=== PATIENT | male | born 1955 | race Caucasian/White ===

== ENCOUNTER → 2018-02-16 14:47 | Outpatient (CLI) | payer OTHER, SELFPAY ==
--- NOTE | 2018-02-16 14:56 | RAD_ITS ---
STUDY: X-RAY CHEST REASON FOR EXAM: Male, 62 years old. Right sided posterior and axillary rib pain. TECHNIQUE: PA and lateral views of the chest. COMPARISON: None. FINDINGS: Lungs well expanded. Small nodular density in the lateral right lung base thought to represent a calcified granuloma. No mass or infiltrate There is no demonstrated pleural abnormality. Normal size heart. Normal mediastinum and maria isabel. Normal visualized pulmonary arteries. Normal visualized aortic arch and descending thoracic aorta. Normal visualized thoracic spine. Normal visualized ribs, clavicles, and shoulders. There is no demonstrated abnormality of the visualized soft tissue structures of the upper abdomen. RAD/Chest PA and Lateral IMPRESSION: No acute cardiopulmonary disease. Electronically Signed: Saul De DO at 16:05 EDT Tel [phone], Service support ,
== END ==
PROVIDERS: Family Provider Family Medicine Geriatric Medicine; PCP Family Medicine Geriatric Medicine; Visit Provider Family Medicine Geriatric Medicine
DX: M54.5 Low back pain (principal)
CPT/HCPCS: 71046

== ENCOUNTER → 2018-03-20 09:27 | Outpatient (CLI) | payer OTHER, SELFPAY ==
--- NOTE | 2018-03-20 09:35 | MRI_ITS ---
STUDY: MRI THORACIC SPINE WITHOUT CONTRAST REASON FOR EXAM: Male, 62 years old. Right mid lateral rib pain and burning x1 year. Rib tightness. TECHNIQUE: Standardized fat and water weighted pulse sequences were obtained in the sagittal and axial planes. COMPARISON: None. FINDINGS: Normal kyphosis of the thoracic spine. There is no substantial scoliosis. T6-T7: Normal endplates. Minimal disc space height narrowing with moderate loss of disc hydration. Normal central canal and bilateral intervertebral neural foramina. T7-T8: Normal endplates. Moderate disc space height narrowing with moderate loss of disc hydration. Normal central canal and bilateral intervertebral neural foramina. T1-2, T2-3, T3-4, T4-5, T5-6, T8-9, T9-10, T10-11, T11-12: Normal endplates. Normal disc hydration, heights and morphology of the corresponding intervertebral discs. Normal central canal and intervertebral neural foramina at the corresponding levels. Normal visualized thoracic cord. Normal conus medullaris that terminates at the upper L1 vertebral body level. The soft tissue structures are unremarkable. MRI/Spine Thoracic (Routine) IMPRESSION: 1. Degenerative disc space height narrowing with moderate loss of disc hydration at the T6-T7 and T7-T8 disc space levels. 2. No MRI evidence of thoracic extruded disc fragment or spinal stenosis. 3. Normal MRI of the thoracic spinal cord. 4. No MRI evidence of acute, subacute or old compression fractures of the thoracic spine. Electronically Signed: Eligio Chatman MD at 10:49 EDT , Service support ,
== END ==
PROVIDERS: Family Provider Family Medicine Geriatric Medicine; PCP Family Medicine Geriatric Medicine; Visit Provider Family Medicine Geriatric Medicine
DX: R07.81 Pleurodynia (principal); M54.5 Low back pain
CPT/HCPCS: 72146

== ENCOUNTER → 2018-06-04 14:56 | Outpatient (CLI) | payer OTHER, SELFPAY ==
[2018-06-06 09:01] LABS: PSA, Free 0.62 ng/mL; PSA, Free % 16.3 % (.); PSA, Total Ultrasensitive 3.8 ng/mL (0.0-4.0)
== END ==
PROVIDERS: Family Provider Family Medicine Geriatric Medicine; PCP Family Medicine Geriatric Medicine; Visit Provider Nurse Practitioner Adult Health
DX: R97.20 Elevated prostate specific antigen [PSA] (principal)
CPT/HCPCS: 36415; 84153; 84154

== ENCOUNTER → 2018-12-03 09:18 | Outpatient (CLI) | payer OTHER, SELFPAY ==
[2018-12-03 10:06] LABS: PSA,Total- Diagnostic 5.28 ng/mL (0.0-4.0)
== END ==
PROVIDERS: Family Provider Family Medicine Geriatric Medicine; PCP Family Medicine Geriatric Medicine; Referring Provider Nurse Practitioner Adult Health; Visit Provider Nurse Practitioner Adult Health
DX: R97.20 Elevated prostate specific antigen [PSA] (principal)
CPT/HCPCS: 36415; 84153

== ENCOUNTER → 2019-03-16 | Outpatient (CLI) | payer OTHER, SELFPAY ==
[2019-03-18 08:53] LABS: PSA, Free 1.31 ng/mL; PSA, Free % 21.5 % (.); PSA, Total Ultrasensitive 6.1 ng/mL (0.0-4.0)
== END | disposition home or self-care (01) ==
PROVIDERS: Family Provider Family Medicine Geriatric Medicine; PCP Family Medicine Geriatric Medicine; Referring Provider Nurse Practitioner Adult Health; Visit Provider Nurse Practitioner Adult Health
DX: R97.20 Elevated prostate specific antigen [PSA] (principal)
CPT/HCPCS: 36415; 84153; 84154

== ENCOUNTER → 2019-09-09 13:29 | Outpatient (CLI) | payer OTHER, SELFPAY ==
[2019-09-09 15:38] LABS: PSA,Total- Diagnostic 4.61 ng/mL (0.0-4.0)
== END ==
PROVIDERS: Family Provider Family Medicine Geriatric Medicine; PCP Family Medicine Geriatric Medicine; Referring Provider Nurse Practitioner Adult Health
DX: R97.20 Elevated prostate specific antigen [PSA] (principal)
CPT/HCPCS: 36415; 84153

== ENCOUNTER → 2019-12-21 13:14 | Outpatient (CLI) | payer OTHER, SELFPAY ==
--- NOTE | 2019-12-21 13:34 | RAD_ITS ---
STUDY: X-RAY CHEST REASON FOR EXAM: Male, 64 years old. melanoma tumor on back, no chest complaints TECHNIQUE: PA and lateral views of the chest. COMPARISON: Comparison is made with prior examination dated February 16, 2018. FINDINGS: Since prior examination, there is been a mild degree of the increased blunting of the right costophrenic angle. Stable increased markings at the right lung base. Stable calcified granuloma in the right lower lobe. Normal size heart. Normal mediastinum and maria isabel. Normal visualized pulmonary arteries. Normal visualized aortic arch and descending thoracic aorta. There are diffuse degenerative changes of the visualized thoracic spine. Normal visualized ribs, clavicles, and shoulders. There is no demonstrated abnormality of the visualized soft tissue structures of the upper abdomen. RAD/Chest PA and Lateral IMPRESSION: Since prior study, there is very mild degree of progressive blunting of the right costophrenic angle. The remainder of the examination is unchanged. Electronically Signed: Selvin Carlton, at 13:53 EDT , Service support ,
[2019-12-21 14:18] LABS: Absolute Lymphocyte Count 1.15 X10^3/uL (0.83-4.51); Absolute Neutrophil Count 6.4 X10^3/uL (2.0-7.7); Basophil# 0.05 X10^3/uL; Basophil% 0.6 % (0-1); Eosinophils% 1.2 % (0-5); Hematocrit 47.1 % (40-54); Hemoglobin 15.9 g/dL (13.0-16.5); Lymphocyte # 1.15 X10^3/ul (4.0); Lymphocyte % 13.9 % (19-41); Mean Corp Hgb Conc 33.8 g/dL (32-36); Mean Corpuscular Volume 88.9 fL (80-94); Mean Platelet Vol. 9.4 fl (6.2-12.0); Monocyte# 0.59 X10^3/uL; Monocyte% 7.1 % (0-10); NRBC Flagged by Analyzer 0 % (0-5); Neutrophil # 6.35 X10^3/uL (2.7-7.7); Neutrophil % 76.8 % (47-70); Platelet Count 162 K/mm3 (150-450); RBC Distribution Width CV 13.2 % (11.6-14.6); RBC Distribution Width SD 42.9 fl (35.1-43.9); White Blood Count 8.3 K/mm3 (4.4-11.0)
[2019-12-21 14:42] LABS: ALB/GLOB Ratio 1.1 RATIO (0.9-2.4); AST(SGOT) 30 U/L (15-37); Alanine Aminotransfer ALT/SGPT 62 U/L (16-61); Alkaline Phosphatase 74 U/L (45-117); Anion Gap 5 (5-15); BUN 24 mg/dL (7-18); BUN/Creat Ratio 24.6 RATIO (10-20); Bilirubin, Direct 0.18 mg/dL (0.00-0.30); Calcium,Total 9.1 mg/dL (8.5-10.1); Chloride 102 mmol/L (98-107); Creatinine, Serum 0.98 mg/dL (0.70-1.30); EST Glomerular Filtration Rate 83 mL/min (>60); Est Glom Filt Rate - Afr Amer 100 mL/min (>60); Globulin 3.5 g/dL (2.2-4.2); Glucose 102 mg/dL (74-106); LDH 153 U/L (87-241); Potassium 4.2 mmol/L (3.5-5.1); Protein, Total 7.5 g/dL (6.4-8.2); Sodium Level 139 mmol/L (136-145)
== END ==
PROVIDERS: PCP Family Medicine Geriatric Medicine; Referring Provider Orthopaedic Surgery Hand Surgery; Visit Provider Orthopaedic Surgery Hand Surgery
DX: C43.59 Malignant melanoma of other part of trunk (principal)
CPT/HCPCS: 36415; 71046; 80053; 82248; 83615; 85025

== ENCOUNTER → 2020-04-03 14:02 | Outpatient (CLI) | payer OTHER, SELFPAY ==
[2020-04-03 15:26] LABS: PSA,Total- Diagnostic 4.67 ng/mL (0.0-4.0)
== END ==
PROVIDERS: PCP Family Medicine Geriatric Medicine; Visit Provider Nurse Practitioner Adult Health
DX: R97.20 Elevated prostate specific antigen [PSA] (principal)
CPT/HCPCS: 36415; 84153

== ENCOUNTER 2021-12-02 09:55 | Emergency (ER) | payer OTHER, SELFPAY ==
[2021-12-02 09:56] VITALS: BP 175/85; PULSE 80; RESP 18; TEMP 36.6; O2SAT 100; BMI 25.8
--- NOTE | 2021-12-02 10:12 | EX.ED.GUMALE ---
HPI History of Present Illness Chief Complaint: Complaint Detail of Chief Complaint: Urinary retention Informant: patient Pain Onset: Today Context: Gradual Onset Timing: Continuous Worsened by: Nothing Relieved by: Laying down Urinary Symptoms Genitourinary Symptoms: Retention and Dysuria Narrative Narrative: Patient presents with urinary retention that began today. Patient states he was last able to urinate at approximately 0130 today. Patient states he feels like there is pressure in his suprapubic area. Patient states he was able to urinate a few drops this morning and there was some discomfort with that. Patient denies any hematuria. Patient states he had a recent upper respiratory infection and took an antihistamine to help with the rhinorrhea. Patient denies any fevers or chills. Patient denies any nausea or vomiting. PFSH PFSH Medical History no medical history no medical history Allergy/AdvReac Type Severity Reaction Status Date / Time No Known Allergies Allergy Verified 12/02/21 09:57 Surgical History History of melanoma excision Hx of knee surgery Hx of lymph node excision Social History Smoking Status: Never smoker ROS ROS ED Constitutional Constitutional ED: Denies chills or fever(s) Eyes Eyes: Denies blurry vision or change in vision ENT ENT ED: Reports rhinorrhea; Denies sore throat Cardiovascular Cardiovascular: Denies chest pain or palpitations Respiratory/Chest Respiratory/Chest: Denies cough or dyspnea Gastrointestinal Gastrointestinal: Denies nausea or vomiting Genitourinary Genitourinary ED: Reports dysuria; Denies hematuria Musculoskeletal Musculoskeletal: Denies back pain or neck pain Integumentary Denies abscess or rash Neurologic Neurologic: Denies headache(s) or weakness Allergic/Immunologic Allergic/Immunologic ED: Denies mouth swelling or urticaria EXAM Physical Exam Const Vital Signs: 12/02/21 09:56 12/02/21 10:53 Temperature 97.9 F 97.9 F Temperature Source Temporal Temporal Pulse Rate 80 80 Respiratory Rate 18 18 Blood Pressure 175/85 H 175/85 H Blood Pressure Mean 115 115 Pulse Ox 100 100 Oxygen Delivery Method Room Air Room Air Positive well nourished and well developed General Appearance ED: well developed HEENT Reports moist mucous membranes Neck supple and no JVD Resp normal respiratory effort and clear to auscultation bilaterally Cardio regular rate, regular rhythm and no murmurs GI normal to inspection, nondistended, normoactive bowel sounds Auscultation: normoactive bowel sounds Palpation: soft and tender suprapubic (Pressure); Negative for guarding Extremity normal to inspection General Extremety ED: Negative for edema or tenderness General Extremity: Negative for edema Neuro oriented x3, CN's II-XII intact bilaterally and no sensory deficits noted Sensorium / Orientation: alert Motor Exam: strength 5/5 throughout Psych mental status grossly normal Skin no rashes or lesions noted MDM MDM MDM Narrative Medical decision making narrative: Kwon catheter was placed. There is over 500 cc of urine returned. Urinalysis does not show any evidence of urinary tract infection. Patient feels better on reevaluation. Patient was given a leg bag. Patient was instructed to follow-up with his primary care physician in 1 to 2 days for Kwon catheter removal. Patient was instructed to return if worse in any way. Patient understood and was agreeable with the plan. All questions were answered. Lab Data Attestation: I reviewed the patient's lab results. Labs: Laboratory Results - last 24 hr 12/02/21 10:50 Urine Color Yellow Urine Clarity Clear Urine pH 7.0 Ur Specific [place] 1.010 Urine Protein 15 H Urine Glucose (UA) Normal Urine Ketones Negative Urine Occult Blood 25 H Urine Nitrite Negative Urine Bilirubin Negative Urine Urobilinogen Normal Ur Leukocyte Esterase Negative Urine RBC 0-5 SEEN Urine WBC 0 SEEN Ur Squamous Epith Cells 0 SEEN Urine Bacteria RARE Urine Mucus 0 SEEN Discharge Plan Triage Chief Complaint: Complaint ED Provider: Dhiraj Webster Dx/Rx/DC Orders Clinical Impression: Acute urinary retention Instructions: ED Kwon Catheter, Care, ED Urinary Retention, Male Primary Care Provider: Papi Wilcox Referrals: Papi Wilcox MD [Primary Care Provider] - 2 Days Disposition Disposition: Home, Self Care
[2021-12-02 10:53] VITALS: BP 175/85; PULSE 80; RESP 18; TEMP 36.6; O2SAT 100
[2021-12-02] MEDS: Lidocaine Jelly 2% 20 ML Syringe (URO-JET) 1 APPLIC TOPICAL (10:56)
[2021-12-02 11:04] LABS: Mucous, Urine 0 SEEN /hpf (<or=2+); Squamous Epithelial Cells - UA 0 SEEN /hpf (0-5); White Blood Cells 0 SEEN /hpf (0-5)
[2021-12-02 11:05] LABS: Color, Urine Yellow (Yellow); Glucose, Dipstick Normal (Normal); Ketone-Dipstick Negative (Negative); Leukocyte Esterase-Dipstick Negative /ul (Negative); Nitrite-Dipstick Negative (Negative); Occult Blood-Urine 25 /ul (Negative); Protein-Dipstick 15 mg/dl (Negative); Urine Bilirubin Dipstick Negative (Negative); Urine Clarity Clear (Clear); Urine Urobilinogen Normal (Normal)
[2021-12-02 11:19] LABS: Bacteria RARE /hpf (None Seen); Red Blood Cells-Urine 0-5 SEEN /hpf (0-5)
== END 2021-12-02 13:05 | disposition home or self-care (01) ==
PROVIDERS: Emergency Provider Emergency Medicine; PCP Family Medicine Geriatric Medicine; Visit Provider Emergency Medicine
DX: R33.9 Retention of urine, unspecified (principal)
CPT/HCPCS: 51702; 81001; 99283

== ENCOUNTER → 2022-01-24 | Outpatient (CLI) | payer OTHER, SELFPAY | END | disposition home or self-care (01) | LOC: LABSPEC 16:48 | PROVIDERS: PCP Family Medicine Geriatric Medicine; Referring Provider Urology; Visit Provider Urology | DX: R31.9 Hematuria, unspecified (principal) | CPT/HCPCS: 87077; 87086; 87088; 87186 ==

== ENCOUNTER 2022-02-06 11:46 | Observation (INO) | payer OTHER, SELFPAY ==
[2022-02-06] VITALS (12 sets, daily range): BP systolic 104–130; BP diastolic 57–76; PULSE 51–65; RESP 16–18; TEMP 35.8–37.1; O2SAT 95–100; BMI 26.9
--- NOTE | 2022-02-06 | PROS_PTH ---
PATIENT: NAS CANSECO LOC: [facility]3 U#:[id number] AGE/SX: 66/M ROOM: NH314 RE02/06/[address]: Dr. Kieran Meyer MD : [id number] BED: 1 DIS: 02/07/2022 SPEC #: [id number] RECD: 02/06/22 14:18 STATUS: SARAH BLACK #: [id number] EZEQUIEL: 02/06/22 00:[address]: Kieran Meyer DEPT: SURGICAL PATHOLOGY RECD BY: Anival Pablo ENTERED: 02/07/22 08:50 SP TYPE: TURP OTHR DR: Dr. Ppai Wilcox MD Tissues: Prostate, NOS Procedures: Surgery Specimen Level IV HEADER OPERATION: Cysto, TUR prostate, [facility] PRE-OP DIAGNOSIS: BPH with urge incontinence TISSUE SUBMITTED: Prostate chips MICROSCOPIC DIAGNOSIS Prostate, transurethral resection: Benign nodular hyperplasia. Mild chronic inflammation. Urothelium with mild chronic inflammation. AM:paul 02/08/2022 MICROSCOPIC DESCRIPTION Slides are reviewed. GROSS DESCRIPTION Received is one container labeled with the patient's name and designated prostate chips. The specimen consists of multiple irregular fragments of pink-morrison, rubbery, soft tissue that in aggregate weigh 9.1 gm and measure in aggregate 5 x 5 x 1.5 cm. The entire specimen is submitted in ten cassettes. / SJ:paul 02/07/2022 TC:3 CPT: 83199
--- NOTE | 2022-02-06 09:34 | EKG12_ITS ---
Test Reason : PRE OP Blood Pressure : / mmHG Vent. Rate : 063 BPM Atrial Rate : 063 BPM P-R Int : 152 ms QRS Dur : 098 ms QT Int : 418 ms P-R-T Axes : 031 001 025 degrees QTc Int : 427 ms Normal sinus rhythm Normal ECG Confirmed by ALTAGRACIA MCKAY, MARLENA ([id number]), editor newspaper COLIN JUNE ([id number]) on 02/11/2022 1:30:45 PM Referred By: ABRAM Confirmed By:MARLENA FRIAS MD
[2022-02-06] MEDS: Lactated Ringers 1,000 ML 15 ML IV (10:10)
[2022-02-06] MEDS: Cefazolin 2 GM in 0.9% Normal Saline 100 ML IV (10:52)
--- NOTE | 2022-02-06 11:47 | PCM.HP.STD ---
HPI - General HPI Narrative NAS CANSECO, is a 66 M who presents for transurethral resection of the prostate for obstructive prostate and symptoms PFSH Medical History (Updated 01/30/22 @ 12:55 by Codie Fam) Back pain Cancer Non-smoker Prostate disease Wears glasses Home Medications ciprofloxacin HCl [Cipro] 500 mg PO BID 01/30/22 [History Last Taken 02/05/22 21:00] ciprofloxacin HCl [Cipro] 500 mg PO BID #10 tab 02/06/22 [Rx Last Taken Unknown] Allergy/AdvReac Type Severity Reaction Status Date / Time No Known Allergies Allergy Verified 02/06/22 09:53 Surgical History (Updated 01/30/22 @ 12:55 by Codie Fam) History of melanoma excision History of surgery on wrist Hx of colonoscopy Hx of fusion of cervical spine Hx of knee surgery Hx of lymph node excision Social History Smoking Status: Never smoker Vital Signs Vital Signs Vital Signs: 02/06/22 09:57 02/06/22 10:00 Temperature 98.7 F Temperature Source Temporal Pulse Rate 65 Respiratory Rate 18 Respiratory Pattern Normal Blood Pressure 116/63 Blood Pressure Mean 80 Blood Pressure Source Monitor Blood Pressure Position Semi-Fowlers Blood Pressure Location Right Arm Pulse Ox 99 Oxygen Delivery Method Room Air Weight Weight: 85.185 kg Body Mass Index (BMI) 26.9
--- NOTE | 2022-02-06 11:47 | PCM.DC ---
Discharge Instructions Diet Discharge Diet: No restrictions Activity Discharge Activity: Return to Normal Activity and May Not Drive (while taking narcotic pain medications.) Dressing / Incision Call your doctor if you observe: Fever of 101 or Higher Follow Up Care Please Follow Up With: Kieran Meyer MD When: Call [phone] for an appointment Test Results: Test results from this visit will be discussed in further detail at your follow-up appointment, if applicable. Discharge Plan Admission Primary Reason for Your Visit: turp Attending Provider: Kieran Meyer Primary Care Provider: Papi Wilcox Instructions Patient Instructions: TUR Home Recovery Discharge Orders/Prescriptions Prescriptions: New ciprofloxacin HCl [Cipro] 500 mg tablet 500 mg PO BID Qty: 10 RF: 0 Discontinued tamsulosin [Flomax] 0.4 mg Capsule 0.8 mg PO QHS RF: 0 No Action ciprofloxacin HCl [Cipro] 500 mg Tablet 500 mg PO BID RF: 0 Referrals / Follow Up: Kieran Meyer MD [STAFF PHYSICIAN] - Papi Wilcox MD [Primary Care Provider] - Disposition Disposition (needs filled in before D/C Order can be placed): Home, Self Care
--- NOTE | 2022-02-06 11:48 | OP.PCM_ITS ---
Report of Operation Date of Procedure: 02/06/22 Pre-Operative Diagnosis: bph with obstruction and recurrent UTIs Post-Operative Diagnosis: same Surgery/Procedure Performed:: Transurethral resection of the prostate Description of Surgical Findings:: In the preoperative setting I discussed with the patient how the surgery would be done with expect afterwards. We discussed how a prostate resection is done and we discussed the risk of the surgery including, bleeding, infection, retrograde ejaculation, changes with ejaculation or intercourse,. We discussed the possibility that the resection of the prostate may not alleviate his urinary symptoms. We discussed the small risk of developing scar tissue along the urethral channel and strictures. We also discussed the chance of the prostate could grow back and he may need further zacarias rgery or treatment in the future for prostate problems. Patient was taken back to the operating room, timeout procedure was performed, he was identified and marked and placed on the operating room table. He underwent general anesthesia. He was placed in dorsolithotomy position. Penis and testicles were prepped and draped in usual sterile fashion. Went into the bladder using the visual obturator with a resectoscope. Once inside the bladder identified the right and left ureteral orifice. I then identified the prostate and the anatomy of the prostate. I marked out the area of the sphincter and the verumontanum was identified. I then proceeded with the prostate resection first resected the median lobe. And then resected the right lobe of the prostate. Then to resect the left lobe of the prostate. I then resected the apical tissue of the prostate. This was a complete resection of all obstructive tissue to improve voiding and relieve obstruction. I then made sure that there was no injury to the sphincter or the verumontanum was still intact. At the end of the resection all the chips were Ellik out of the bladder. I then identified the left and right ureteral orifice and these were confirmed to be in good position and effluxing and not injured. The resectoscope was removed, a 22 Amharic catheter was placed into the bladder on continuous irrigation. And the urine was fairly light pink color and draining normally. He was taken back to the PACU in good condition. CPT 35925 Surgeon: melany Type of Anesthesia: General Admit VTE Documentation VTE Present on Admission: No VTE Mechan Device Prophylaxis: SCD's VTE Pharm Prophylaxis ordered?: No
[2022-02-06] MEDS: Ciprofloxacin 500 MG Tablet PO (22:15)
[2022-02-07 00:45] VITALS: BP 108/59; PULSE 59; RESP 16; TEMP 36.7; O2SAT 96
[2022-02-07] MEDS: Acetaminophen 500 MG Tablet PO (02:10)
[2022-02-07 04:45] VITALS: BP 105/59; PULSE 53; RESP 16; TEMP 36.8; O2SAT 96
[2022-02-07 08:07] VITALS: BP 114/63; PULSE 58; RESP 18; TEMP 36.6; O2SAT 98
[2022-02-07] MEDS: Ciprofloxacin 500 MG Tablet PO (10:01)
[2022-02-07 10:21] VITALS: BP 114/63; PULSE 58; RESP 18; TEMP 36.6; O2SAT 98
--- NOTE | 2022-02-07 10:40 | PHA.DC.MC ---
Pharmacy Service has performed discharge medication reconciliation and counseling for this patient. The patient was counseled on the following discharge medications and changes in medications for homegoing were reviewed. 1. CIPRO - Had active home medlist order, counselled pt to inform that he should not be taking both medications together. Pt verbalized understanding. The Reason for Use, instructions for use, and potential side effects were reviewed for all new medications. The patient's questions regarding all of their medications were answered. The patient was able to verbally demonstrate an understanding of their discharge medications. Home Medications ciprofloxacin HCl [Cipro] 500 mg PO BID #10 tab 02/06/22 The patient's discharge medication list was reviewed for discrepancies and discrepancies were resolved. Note: Called retail pharmacy to facilitate payment and meds to beds delivery
== END 2022-02-07 10:30 | disposition home or self-care (01) ==
LOC: SDC 12:12 → MS3 12:12
PROVIDERS: Admitting Provider Urology; PCP Family Medicine Geriatric Medicine; Visit Provider Urology
PROC: (CPT 52601; principal; 2022-02-06 11:20)
DX: N40.1 Benign prostatic hyperplasia with lower urinary tract symptoms (principal); N13.8 Other obstructive and reflux uropathy; Z87.440 Personal history of urinary (tract) infections
CPT/HCPCS: 52601; 00914; 88305; 93005; 99218; J7120; G0378; J2405

== ENCOUNTER → 2022-06-24 | Outpatient (CLI) | payer OTHER, SELFPAY ==
[2022-06-24 16:49] LABS: PSA,Total- Diagnostic 2.17 ng/mL (0.0-4.0)
== END | disposition home or self-care (01) ==
LOC: LAB 15:23
PROVIDERS: PCP Family Medicine Geriatric Medicine; Visit Provider Urology
DX: N40.1 Benign prostatic hyperplasia with lower urinary tract symptoms (principal)
CPT/HCPCS: 36415; 84153